=== PATIENT | female | born 1980 | race Caucasian/White ===

== ENCOUNTER 2020-10-17 15:37 | Emergency (ER) | payer MEDICAID ==
[2020-10-17] MEDS ORDERED: HYDROcod/ACETAM 5/325 MG TABLET PO STA (16:21)
[2020-10-17] MEDS ORDERED: AMOX/CLAV 875 MG/125 MG TABLET PO STA (16:21)
[2020-10-17] MEDS ORDERED: LIDOCAINE VISCOUS 2% 15 ML UDC MM STA (16:24)
--- NOTE | 2020-10-17 16:25 | ED Physician Documentation ---
History of Present Illness - Stated complaint Stated Complaint: MOUTH/TOOTH PX - Chief complaint Chief Complaint: Heent - Additonal information Additional information: 40-year-old female presents emergency department for evaluation of dental pain. She reports that she cracked her right upper molar about a year ago. In addition to that her left upper molar has been cracked for a few months. She has been trying to did get the tooth out at home which is causing increased pain. She reports that last night she felt she touched the nerve and its been excruciating since. No fevers no trismus. No cervical lymphadenopathy. Normal phonation. Patient denies tobacco or drug use. Review of Systems Constitutional: reports: Reviewed and negative Eyes: reports: Reviewed and negative Ears: reports: Reviewed and negative Nose: reports: Reviewed and negative Throat: reports: Dental pain / toothache Cardiac: reports: Reviewed and negative Respiratory: reports: Reviewed and negative GI: reports: Reviewed and negative PD PAST MEDICAL HISTORY - Present Medications Home Medications: Ambulatory Orders Medication Instructions Recorded Confirmed Acetaminophen [Tylenol] 650 mg PO Q6H PRN #30 tab 10/17/20 Amox/Clav 875/125 [Augmentin] 1 each PO Q12H #20 tab 10/17/20 Ibuprofen [Motrin] 600 mg PO Q6H PRN #30 tab 10/17/20 - Allergies Allergies/Adverse Reactions: Allergies Allergy/AdvReac Type Severity Reaction Status Date / Time No Known Drug Allergies Allergy Verified 10/17/20 15:39 PD ED PE EXPANDED - General General: Alert, No acute distress, Anxious - HEENT HEENT: Atraumatic, PERRL, Dental decay (tooth #1 obviously fractures, decayed. no obvious swelling, fluctuance. Tooth #16, fractured, decay. no swelling, drainage, erythema) Results - Vitals Vitals: Vital Signs - 24 hr 10/17/20 15:39 Temperature 36.5 C Heart Rate 120 H Respiratory 16 Rate Blood Pressure 118/80 O2 Saturation 97 Oxygen O2 Source Room air PD MEDICAL DECISION MAKING - ED course Complexity details: reviewed results, re-evaluated patient, considered differential, d/w patient ED course: 40 year old female presents with acute on chronic bilateral upper molar pain worsening after tryin to "get the teeth out herself" by chipping away at the teeth. No obvious gumline swelling or fluctuance. No trismus, swelling, dysph onia. Pt was hoping for tooth extraction here in the ED. We discussed that we could not extract the teeth in the emergency department and that follow-up with the dental is important. As she lives on the [facility] I did advise her to follow-up with [facility] as [facility] that does have dental walk-in clinics available. Also made aware of [facility] dental clinics in [place]. She will be discharged with prescription for Augmentin as well as Phenergan and Tylenol. She did get moderate relief of the pain after swishing with viscous lidocaine. I did recommend that she buy Orajel or Anbesol counter as that may also significantly help until she is able to see dentistry. No red flags such as fevers trismus dysphonia inability to tolerate oral secretions or facial swelling Departure - Departure Disposition: 01 Home, Self Care Clinical Impression: Dentalgia Condition: Stable Record reviewed to determine appropriate education?: Yes Instructions: ED Tooth Pain Prescriptions: Amox/Clav 875/125 [Augmentin] 1 each PO Q12H #20 tab Ibuprofen [Motrin] 600 mg PO Q6H PRN #30 tab PRN Reason: Pain Acetaminophen [Tylenol] 650 mg PO Q6H PRN #30 tab PRN Reason: Pain Comments: Radha please fill the prescription for the antibiotics and begin taking twice daily as prescribed. I also recommend that you rinse your mouth with warm salt water 2-3 times a day. Please alternate Tylenol or ibuprofen for dental discomfort. As the lidocaine given to you in the emergency department help reduce a lot of your pain I suspect that using an qdry-sis-yautsah agent such as Anbesol or Orajel will help as well. [facility] does have dental clinics. I do recommend that you call them on Monday to arrange follow-up. In addition to that [facility] dental clinics in [place] are also able to see patients. If you develop facial swelling, high fevers, cannot open your mouth normally or swallow your saliva please return immediately to the emergency department. In the long-term this will be a chronic problem until you are able to get the teeth properly cared for or extracted as appropriate.
[2020-10-17 17:18] VITALS: BP 115/74
== END 2020-10-17 17:15 | disposition home or self-care (01) ==
LOC: ED 15:37
DX: K08.89 Other specified disorders of teeth and supporting structures (principal); K02.9 Dental caries, unspecified; K03.81 Cracked tooth
CPT/HCPCS: 99283; A9270